=== PATIENT | male | born 1975 | race Caucasian/White ===

== ENCOUNTER → 2018-08-06 | Outpatient (CLI) | payer OTHER ==
--- NOTE | 2018-08-06 12:17 | RAD ---
Indication:Nausea and vomiting for years. TECHNIQUE: Grayscale, color Doppler and spectral waveform is of the limited abdomen obtained. COMPARISON:None FINDINGS: Visualized pancreas is within normal limits of pancreatic tail not visualized due to overlying bowel gas. IVC is within normal limits. No gallstones, pericholecystic fluid or gallbladder wall thickening. Main portal vein is patent with hepatopedal flow. CBD measures 4 mm in diameter and is within normal limits. Liver measures 16 cm in longest dimension with diffusely increased echogenicity. Right kidney measures 10.8 cm in length without hydronephrosis. IMPRESSION: 1. Hepatic steatosis. 2. No cholelithiasis or sonographic evidence of acute cholecystitis. Electronically signed by: Karl Riley DO (08/06/2018 12:13 PM) [facility]
== END | disposition home or self-care (01) ==
LOC: US 08:35
PROVIDERS: ATTEND Physician Assistant Medical
DX: K76.0 Fatty (change of) liver, not elsewhere classified (principal)
CPT/HCPCS: 76705

== ENCOUNTER → 2021-08-28 | Outpatient (CLI) | payer OTHER ==
--- NOTE | 2021-08-29 13:24 | RAD ---
XR LUMBAR SPINE 4+V History: Reason: LOW BACK PAIN, NO KNOWN INJURY / Spl. Instructions: / History: Technique: 5 views lumbar spine. Comparison: MRI June 16, 2011 Findings: Slight grade 1 anterolisthesis L5 on S1. Normal vertebral body height. No acute fracture. Mild degene rative disc changes most prominent L5-S1. Impression: 1. Mild lumbar spondylosis. 2. Slight grade 1 anterolisthesis L5 on S1, unchanged. Electronically signed by: Sergio Carlton DO (08/29/2021 1:21 PM) [facility]
== END ==
LOC: RAD 11:23
PROVIDERS: ATTEND Physician Assistant Medical
DX: M47.817 Spondylosis without myelopathy or radiculopathy, lumbosacral region (principal); M43.17 Spondylolisthesis, lumbosacral region; M54.41 Lumbago with sciatica, right side
CPT/HCPCS: 72110